=== PATIENT | female | born 1975 | race Hispanic/Latino ===

== ENCOUNTER 2020-03-28 13:25 | Inpatient (IN) | payer OTHER ==
[~2020-03-28] VITALS: Ht 152.4 cm; Wt 57.2 kg
[2020-03-28] VITALS (9 sets, daily range): BP systolic 120–151; BP diastolic 67–79
--- NOTE | 2020-03-28 13:25 | NUR ---
PATIENT TO ROOM VIA EMS UNRESPONSIVE. SHE MOANS UPON TACTILE STIMULATION. PER GUARD SHE WAS FOUND IN CELL HAVING SEIZURE LIKE ACTIVITY FOR AN UNKNOWN AMOUNT OF TIME. SHE WAS SEEN HITTING HEAD ON THE CELL WALL AND THEN GOING LIMP. PER EMS PT APPEARED POSTICTAL UPON THEIR ARRIVAL.
--- NOTE | 2020-03-28 13:30 | NUR ---
SPO2 100% ON 4L NC AT THIS TIME. NASAL TRUMPET INSERTED TO LEFT NARES BY KARIE WHEELER. 02 TITRATED TO 2L VIA MOUTH, SPO2 REMAINS AT 100% ON 2L.
[2020-03-28 13:52] LABS: HCG SERUM/URINE (NEG/POS) NEGATIVE (NEGATIVE); HEMOGLOBIN 9.5 g/dl (12.0-16.0); IMMATURE GRANULOCYTES 0.5 % (0.0-5.0); MEAN CELL VOLUME 73.6 fL CALC (80.0-100.0); MEAN CORPUSCULAR HGB 21.8 pG CALC (26.0-32.0); MEAN CORPUSCULAR HGB CONC 29.7 g/dL CAL (32.0-36.0); NEUT# 4.28 thou/uL (2.00-7.15); RED BLOOD COUNT 4.35 mill/uL (4.20-5.60); RED CELL DISTRI WIDTH 20.5 % (11.5-15.5); URINE BILIRUBIN - DIPSTICK NEGATIVE (NEGATIVE); URINE BLOOD DIPSTICK NEGATIVE (NEGATIVE); URINE COLOR YELLOW; URINE GLUCOSE - DIPSTICK NEGATIVE (NEGATIVE); URINE KETONE NEGATIVE (NEGATIVE); URINE LEUK ESTERASE NEGATIVE (NEGATIVE); URINE NITRITE - DIPSTICK NEGATIVE (Negative); URINE PROTEIN - DIPSTICK NEGATIVE (NEG-TRACE); URINE SPECIFIC GRAVITY 1.025; URINE UROBILINOGEN - DIPSTICK 0.2 E.U./dL (0.2)
--- NOTE | 2020-03-28 14:00 | NUR ---
PATIENT TRYING TO REMOVE NASAL AIRWAY. SPO2 REMAINS 100% ON 2L NC.
[2020-03-28] MEDS ORDERED: ZOLOFT100 MG PO (14:02)
[2020-03-28] MEDS ORDERED: AMOXICILLIN875 MG PO (14:02)
[2020-03-28] MEDS ORDERED: LAMICTAL100 M1 PO (14:03)
[2020-03-28 14:09] LABS: ALKALINE PHOSPHATASE 67 u/l (38-126); ANION GAP 11 (6-22 (CALC)); BUN 12 mg/dL (7-17); BUN/CREATININE RATIO 23 (12-20 (CALC)); CARBON DIOXIDE 25 mmol/l (22-30); CHLORIDE 107 mmol/l (95-108); CREATININE 0.5 mg/dL (0.5-1.0); GFR > 60 ML/MIN (>=60 (CALC)); GFR FOR AFR.AMER. > 60 ML/MIN (>=60 (CALC)); POTASSIUM 4.9 mmol/l (3.5-5.1); SGOT/AST 59 u/l (14-36); SODIUM 139 mmol/l (137-146)
[2020-03-28 14:10] LABS: ALBUMIN 4.5 g/dL (3.2-5.0); BILIRUBIN, TOTAL 0.5 mg/dL (0.0-1.4)
--- NOTE | 2020-03-28 14:20 | NUR ---
PATIENT TO CT SCAN VIA STRETCHER IN STABLE CONDITION ON ENGINEERING INTERN. PATIENT REMAINS DROWSY, FOLLOWING SIMPLE COMMANDS. SPEECH REMAINS GARBLED. OFFICER AT BEDSIDE.
[2020-03-28 14:21] LABS: MYOGLOBIN 20 ng/mL (0 - 62)
--- NOTE | 2020-03-28 14:45 | NUR ---
PATIENT RIGHT UPPER EXTREMITY STRENGTH WEAK BUT IS ABLE TO USE RIGHT HAND TO WHERE PAIN IS AT ON HER HEAD. MILD SWELLING AND BRUISING TO RIGHT SIDE FOREHEAD AND SWELLING TO NOSE NOTED. ICE PACK APPLIED AND SHE IS HOLDING THE ICE PACK WITH RIGHT HAND.
--- NOTE | 2020-03-28 15:04 | NUR ---
MD AT BEDSIDE TO RE-EXAMINE PATIENT.
--- NOTE | 2020-03-28 15:45 | NUR ---
PATIENT REMAINS ALTERED WITH GARBLED SPEECH, SHE FOLLOWS SIMPLE COMMANDS. OFFICER REMAINS AT BEDSIDE. CALL AVENDANO WITHIN REACH.
--- NOTE | 2020-03-28 16:00 | NUR ---
PATIENT LYING IN STRETCHER OPENING AND CLOSING MOUTH, SHE IS SWINGING LEFT ARM AROUND IN FRONT OF FACE. WHEN ASKED IF SHE SEES ANYTHING SHE HAS GARBLED SPEECH. DR JAMA OBSERVING WELL.
--- NOTE | 2020-03-28 16:30 | NUR ---
PATIENT RESTING IN STRETCHER IN NAD, RESP EVEN AND UNLABORED. SHE AWAKENS TO VERBAL STIMULI. SPEECH REMAINS GARBLED AND SHE FOLLOWS SIMPLE COMANDS. OFFICER REMAINS AT BEDSIDE.
--- NOTE | 2020-03-28 17:20 | NUR ---
KARIE GRIMES CALLED REPORT TO KARIE LOPEZ IN ICU.
--- NOTE | 2020-03-28 17:30 | NUR ---
Admission Note Report Given to: JESSICA Transported by: Wheelchair X Stretcher Transported with: X Nurse Transporter X Patent IV O2 X Men'S Swim Coach Location: X ICU MS2 PATIENT TRANSPORTED TO ICU BED 3 BY KARIE GRIMES.
--- NOTE | 2020-03-28 17:40 | NUR ---
female pt received to ICU bed 3 via bed accompanied by Sam Robles RN and patrol sergeant sheriff's office officers x2; admission assessment completed at this time; pt with unintelligible speech/ garbled speech; pupils reactive; no s/s of pain noted; no facial grimaces; no n/v noted; pt able to follow some simple commads such as opening mouth and raising arms; resp even and unlabored/ shallow; lungs diminished (pt will not take deep breaths); skin color wnl; ra; hr reg; strong pulses; no edema noted; sr on monitor; bilat knee high carmen hose placed; abd soft with bs present; no bm noted per procedure writer; no urine to inspect at this time; no urinary incont noted; #18 ems site to lac saline locked; flushed and patent; no redness or edema noted; ivf to be initiated; pt repositioned; suctioned set up at bedside; pt cuffed to bed per officer; call ligh within reach; pt unable to answer questions or give medical hx; will continue to monitor
--- NOTE | 2020-03-28 18:10 | NUR ---
continues to rest in bed with eyes closed; no apparent distress noted; DCSO guard x1 at bedside; sr on monitor; iv intact and patent; call light within reach
--- NOTE | 2020-03-28 20:30 | NUR ---
PATIENT RESTING IN BED. SHE IS AN INMATE AT [facility]. GUARD IN IS THE ROOM AND PATIENT ANKLES AND LEFT ARM SCHACKLED TO BED. PATIENT LETHARGIC BUT AROUSABLE TO NAME. SPEECH IS GARBLED. FOLLOWS SOME COMMANDS. RESP NON-LABORED. LUNGS CLEAR. CMS ADEQUATE TO EXTREMITIES. PATIENT ASSISTED UP TO BSC, VOIDED LARGE AMOUNT CLEAR YELLOW URINE. NS INFUSING TO LAC IV SITE. EXPLAINED PLAN OF CARE. CALL AVENDANO IN REACH. VICE PRESIDENT OF BRAND MANAGEMENT SHOWS SR.
--- NOTE | 2020-03-28 22:44 | NUR ---
MEDICATED WITH TYLENOL 650 MG PO FOR C/O HEADACHE. ASSISTED UP TO BSC TO VOID.
[2020-03-29] VITALS (20 sets, daily range): BP systolic 100–135; BP diastolic 52–87
--- NOTE | 2020-03-29 | NUR ---
COOL PACK APPLIED TO FOREHEAD FOR CONTINUED C/O HEADACHE.
--- NOTE | 2020-03-29 01:59 | NUR ---
VSS. REP NON-LABORED. NO SEIZURE ACTIVITY NOTED. RESTING IN BED WITH EYES CLOSED.
--- NOTE | 2020-03-29 04:00 | NUR ---
SLEEPING. RESP NON-LABORED. VSS.
--- NOTE | 2020-03-29 05:10 | NUR ---
TYLENOL 650 MG PO FOR C/O HEADACHE. COOL PACK APPLIED TO FOREHEAD.
--- NOTE | 2020-03-29 05:54 | NUR ---
NO CHANGES TO REPORT. VSS. RESP NON-LABORED. SR ON MONITOR. NS INFUSING WITHOUT INCIDENT INTO LAC IV SITE.
[2020-03-29 06:00] LABS: HEMATOCRIT 31.3 % (37.0-47.0); HEMOGLOBIN 9.4 g/dl (12.0-16.0); IMMATURE GRANULOCYTES 0.2 % (0.0-5.0); MEAN CELL VOLUME 73.1 fL CALC (80.0-100.0); NEUT# 3.65 thou/uL (2.00-7.15); RED BLOOD COUNT 4.28 mill/uL (4.20-5.60); RED CELL DISTRI WIDTH 20.6 % (11.5-15.5)
[2020-03-29 06:20] LABS: ANION GAP 10 (6-22 (CALC)); BUN 8 mg/dL (7-17); BUN/CREATININE RATIO 16 (12-20 (CALC)); CARBON DIOXIDE 25 mmol/l (22-30); CHLORIDE 108 mmol/l (95-108); CREATININE 0.5 mg/dL (0.5-1.0); GFR > 60 ML/MIN (>=60 (CALC)); GFR FOR AFR.AMER. > 60 ML/MIN (>=60 (CALC)); SODIUM 139 mmol/l (137-146)
--- NOTE | 2020-03-29 07:15 | NUR ---
REPORT RECEIVED FROM KARIE CASSIDY. PT RESTING IN BED SEMI FOWLERS WITH SHEET WRAPPED AROUND HER HEAD COVERING HER EYES AND GUARD AT BEDSIDE. PT'S HEAD WAS UNCOVERED; VERY LETHARGIC. C/O HEAD AND NECK ACHE; VERY QUIET WHEN SPEAKING WITH MINIMAL RESPONSES. STATES FIRST NAME, MONTH AND DAY OF , AND KNOWS SHE IS IN THE HOSPITAL; UNABLE TO STATES WHICH HOSPITAL, YEAR OF , LAST NAME, OR YEAR. FOLLOWS COMMANDS TO MOVE FACIAL MUSCLES. VSS; AFEBRILE. IV FLUIDS INFUSING WITHOUT DIFFICULTY; EMS IV SITE TO LAC APPEARS HEATLHY. LUNGS ARE CLEAR. LLE SHACKLED TO BED. SAFETY MEASURES IN PLACE. CALL LIGHT WITHIN REACH.
--- NOTE | 2020-03-29 08:25 | NUR ---
DR. DE LA VEGA AT BEDSIDE FOR EVAL. PT RESPONDS THE SAME TO HIS QUESTIONS. ALSO C/O NUMBNESS TO RIGHT SIDE OF HER BODY. WHEN ASKED TO WIGGLE HER TOES ONLY LEFT TOES RESPOND. NO RESPONSE TO PAINFUL STIMULI ON FINGERS. PERRLA; 6MM PUPILS. VERBAL ORDERS RECEIVED.
[2020-03-29 08:48] LABS: GFR > 60 ML/MIN (>=60 (CALC)); GFR FOR AFR.AMER. > 60 ML/MIN (>=60 (CALC))
--- NOTE | 2020-03-29 09:10 | NUR ---
0828- STROKE ALERT CALLED. 0835-LAB AT BEDSIDE FOR BLOOD DRAW. 0836- IBRAHIMA FROM [facility] CALLED TO UPDATE NURSE ON EVENTS FROM YESTERDAY. 0845-TRANSPORTED TO CT VIA BED WITH 2 ICU STAFF AND GUARD. TELE-NEUROLOGIST THERE FOR INITIAL EVAL ON HISTORY AND SYMPTOMS. 0847-ON CT TABLE FOR STAT BRAIN CT. 0853-NIH COMPLETED BY NEUROLOGIST; PT HAS RIGHT SIDED WEAKNESS WITH SENSORY LOSS; SLURRED AND GARBLED SPEECH. CTA ORDERED. 0907-CTA COMPLETED.
--- NOTE | 2020-03-29 09:15 | NUR ---
TRANSPORTED BACK TO ROOM VIA BED AND RECONNECTED TO ATTACHMENTS. PT VERY QUIETLY REPEATS "PEE" "PEE." PURWIK CATHETER APPLIED AND PT VOIDED CLEAR YELLOW URINE.
--- NOTE | 2020-03-29 09:51 | NUR ---
Patient is screened for PT intervention and may benefit from consult if medical agrees
--- NOTE | 2020-03-29 09:54 | NUR ---
CTA BRAIN IS NEGATIVE. MORE ORDERS RECEIVED FROM DR. DE LA VEGA INCLUDING MRI WITH AND WITHOUT CONTRAST AND LUMBAR PUNTURE TO RULE OUT MENINGITIS.
--- NOTE | 2020-03-29 11:35 | NUR ---
TRANSPORTED TO MRI VIA MRI STRETCHER WITH ICU NURSE AND GUARD. PT IS ABLE TO ANSWER QUESTIONS FOR CONSENT PURPOSES; DENIES ANY SURGERIES AND METAL IMPLANTS.
--- NOTE | 2020-03-29 12:15 | NUR ---
PT RETURNED TO ROOM 3 AND TRANSFERRED FROM STRETCHER TO BED WITH 2 PERSON ASSIST. RECONNECTED TO ALL ATTACHMENTS AND IV FLUIDS AGAIN INFUSING. PURWIK CATHETER REPLACED. LLE AGAIN SHACKLED TO BED AND GUARD REMAINS AT BEDSIDE. CALL LIGHT WITHIN REACH.
--- NOTE | 2020-03-29 14:30 | NUR ---
PT RESTING ON LEFT SIDE WITH EYES CLOSED AND NO SIGNS OF DISTRESS; WHEN AWAKENED PT DOES C/O HEADACHE; COOL PACK APPLIED. 98-100% SPO2 ON ROOM AIR.
--- NOTE | 2020-03-29 17:16 | NUR ---
NSR ON DIRECTORY OPERATOR WITH HEART RATE IN THE 80'S. PT CONDITION IS UNCHANGED. VSS. AFEBRILE. GUARD REMAINS AT BEDSIDE. SAFETY MEASURES IN PLACE. CALL LIGHT WITHIN REACH.
--- NOTE | 2020-03-29 19:35 | NUR ---
PATIENT IS DROWSY, AWAKENS WITH VERBAL STIMULI. FOLLOWS DIRECTIONS. DOES HAVE RIGHT SIDE WEAKNESS, NO FACIAL DROOP, FLAT EFFECT, ANSWERS QUESTIONS WITH NO CONVERSATION. NURSE ASSESSMENT PERFORMED, SEE CHARTING DOCUMENTATION. LAC 18 G EMS SITE INTACT, NS INFSUING AT 100 ML/HR. ALEXIA HOSE IN PLACE. SR ON TELEMETRY, HR 70'S. 98% O2 SAT ON RA, NO SOB NOTED. BP WNL. PUREWICK IN PLACE. LEFT LEG SHACKLED TO BED, PULP ROLLER AT BEDSIDE. CALL LIGHT WITHIN REACH.
--- NOTE | 2020-03-29 21:05 | NUR ---
PATIENT USES CALL LIGHT, WHEN ASKED WHAT CAN SHE BE HELPED WITH, SHE STATES, "WET." I ASKED AGAIN SINCE I DID NOT UNDERSTOOD WHAT SHE WAS TRING TO SAY, PATIENT STATES, "WET, " AND POINTS TO JOSE AREA. SHE HAD PULLED THE PUREWICK OFF AND WET THE BED PADS. PERICARE PROVIDED, BED PADS CHANGED, PURE WICK PLACED BACK ON, INSTRUCTED TO NOT PULL IT OFF SO THAT IT CAN COLLECT URINE. SHE STATES, "THANK YOU." NO OTHER COMPLAINTS OR NEEDS, CALL LIGHT WITHIN REACH.
--- NOTE | 2020-03-29 21:15 | NUR ---
PHYSICIAN OFFICE SPECIALIST STEPPED OUT TO USE RESTROOM. JUNCTION MAKER IN ROOM IN HER PLACE. PATIENT REMIANS SHACKLED ON LEFT LEG TO BED.
--- NOTE | 2020-03-29 22:00 | NUR ---
PATIENT FRONT WORKER LIGHT, REPORTS PURE WICK CAME OFF. PUREWICK PLACED BACK ON.
[2020-03-30] VITALS (23 sets, daily range): BP systolic 101–153; BP diastolic 52–88
--- NOTE | 2020-03-30 00:48 | NUR ---
PATIENT RESTS WITH EYES CLOSED, NO ACUTE DISTRESS SHOWN. AFEBRILE. CALL LIGHT WITHIN REACH. MANAGER OF SCHOOL AT BEDSIDE.
--- NOTE | 2020-03-30 01:32 | NUR ---
NEW BAG OF NS INFUSING. PATIENT AWAKENS WITH VERBAL STIMULI, LAYS ON HER RIGHT SIDE. NO ACUTE DISTRESS SHOWN. ROLLER CALLED TO WATCH PATIENT WHILE FOOD SERVICE UTILITY WORKER STEPS OUT TO USE RESTROOM.
--- NOTE | 2020-03-30 02:26 | NUR ---
PATIENT BECOMES SIGNIFICANTLY SOB WHEN GETTING UP TO BSC WITHOUT 02, PLACED ON 15 L/MIN HIGH FLOW NC WHILE USING BSC, O2 WENT UP TO 85%. NOW BACK ON BIPAP, O2 92%.
--- NOTE | 2020-03-30 05:37 | NUR ---
TYLENOL GIVEN PER REQUEST, PATIENT ASKED BEHAVIORIST IF SHE COULD HAVE TYLENOL FOR HEADACHE , WHEN I ASKED PATIENT WHAT HER PAIN RATE FROM 0-10, SHE STATES, "8." NOTED SHE COULD SIP FROM STRAW AND NOTED EQUAL BILATERAL CHEECK/MOUTH SYMMETRY WHEN SHE WAS SIPPING FROM STRAW, THAN SHE DRIPPED WATER FROM HER MOUTH. NEW IV START DUE TO EMS IV SITE . PATIENT ABLE TO TOLERATE.
--- NOTE | 2020-03-30 07:10 | NUR ---
REPORT RECEIVED FROM KARIE SOMERS.
--- NOTE | 2020-03-30 07:50 | NUR ---
DR. BRAUN AT BEDSIDE.
--- NOTE | 2020-03-30 08:00 | NUR ---
REPOSITIONED INTO HIGH FOWLERS AND SET UP FOR BREAKFAST; PT FEEDING SELF WITH LEFT HAND. ASSESSMENT COMPLETED.
[2020-03-30 08:05] LABS: HEMATOCRIT 29.4 % (37.0-47.0); HEMOGLOBIN 8.9 g/dl (12.0-16.0); IMMATURE GRANULOCYTES 0.2 % (0.0-5.0); MEAN CELL VOLUME 73.9 fL CALC (80.0-100.0); MEAN CORPUSCULAR HGB 22.4 pG CALC (26.0-32.0); MEAN CORPUSCULAR HGB CONC 30.3 g/dL CAL (32.0-36.0); NEUT# 2.8 thou/uL (2.00-7.15); RED BLOOD COUNT 3.98 mill/uL (4.20-5.60); RED CELL DISTRI WIDTH 20.2 % (11.5-15.5)
--- NOTE | 2020-03-30 08:32 | NUR ---
MICROBIOLOGY LAB ASSISTANT AT BEDSIDE FOR ECHOCARDIOGRAM.
[2020-03-30 08:38] LABS: BUN 8 mg/dL (7-17); BUN/CREATININE RATIO 19 (12-20 (CALC)); CARBON DIOXIDE 24 mmol/l (22-30); CHLORIDE 110 mmol/l (95-108); CREATININE 0.5 mg/dL (0.5-1.0); GFR > 60 ML/MIN (>=60 (CALC)); GFR FOR AFR.AMER. > 60 ML/MIN (>=60 (CALC)); SODIUM 138 mmol/l (137-146)
[2020-03-30 08:41] LABS: ANION GAP 8 (6-22 (CALC)); POTASSIUM 3.7 mmol/l (3.5-5.1)
--- NOTE | 2020-03-30 09:54 | NUR ---
PT TRANSPORTED TO XRAY VIA STRETCHER WITH ICU NURSE AND GUARD FOR LUMBAR PUNCTURE.
--- NOTE | 2020-03-30 10:40 | NUR ---
PT RETURNED TO ICU ROOM 3 IN STABLE CONDITION VIA STRETCHER. INCONTINENT OF URINE; NEW LINENES PROVIDED. PT POSITIONED SUPINE WITH HOB ELEVATED AT 20 DEGREES. CAFFINATED BEVERAGES PROVIDED PER MD ORDER. LLE AGAIN SHACKED TO BED AND GUARD REMAINS AT BEDSIDE. RECONNECTED TO ALL ATTACHMENTS. VSS.
--- NOTE | 2020-03-30 13:36 | NUR ---
PT USED CALL LIGHT TO REQUEST HEADACHE MEDICATION. TYLENOL GIVEN FOR 9/10 HEADACHE. PT SAT UP IN HIGH FOWLERS FOR LUNCH. C/O THE SENSATION THAT WATER IS DRIPPING DOWN THE SIDE OF HER RIGHT FACE; PT STATES THAT SHE KNOWS THERE IS NO WATER, BUT SHE KEEPS WIPING HER FACE THINKING THAT THERE IS. PT IS MORE ALERT AND MORE VERBAL.
--- NOTE | 2020-03-30 14:16 | NUR ---
PT BECAME DISORIENTED CONFUSING HER DRINKING STRAW FOR CHOP STICKS AND SPEECH MORE GARBLED. PERRLA AND PT IS ABLE TO STATE HER FIRST NAME AND FOLLOW COMMANDS TO OPEN AND CLOSE MOUTH. PT THEN BEGINS TO BITE HER TONGUE AND SEIZE; BITE BLOCK PLACED AND NEW ORDER RECEIVED FOR ONE TIME DOSES OF ATIVAN AND KEPPRA.
--- NOTE | 2020-03-30 14:27 | NUR ---
GUSTAVO AND CLINT ADMINISTERED. PT RESTING SEMI FOWLERS WITH EYES CLOSED AND CURRENTLY WITH NO SIGNS OF DISTRESS. STATES, "MY HEAD HURTS."
--- NOTE | 2020-03-30 15:10 | NUR ---
PHYSICAL THERAPY AT BEDSIDE.
--- NOTE | 2020-03-30 17:12 | NUR ---
PT MORE ALERT AND VERBAL AGAIN WITH RESPONSE OF "I'M FINE" WHEN ASKED HOW SHE IS FEELING. REMAINS ON SEIZURE PRECAUTIONS INCLUDING PADDED BED RAILS.
--- NOTE | 2020-03-30 18:19 | NUR ---
PT AT ONE POINT SITTING UP ON EDGE OF BED. ATE 100% OF DINNER. VOIDED 1200ML OF CLEAR YELLOW URINE VIA PURWIK CATHETER.
--- NOTE | 2020-03-30 20:27 | NUR ---
PATIENT IS AWAKE, NO ACUTE DISTRESS SHOWN, LAYS ON HER R-SIDE. ENFORCEMENT OFFICER AT BEDSIDE, NOTIFIED HER I WILL PROVIDE TYLENOL SHE REQUESTED.
--- NOTE | 2020-03-30 21:35 | NUR ---
PATIENT IS AWAKE, WATCHES TV. FOLLOWS COMMANDS, SPEAKS IN FULL SENTENCES, CLEARLY. CAN TRUCK PACKER HER CUP OF WATER WITH HER RIGHT HAND. ON RA, O2 SAT 98%. NO SOB NOTED. NURSE ASSESSMENT PERFORMED. SR ON TELEMETRY, HR 80'S. BP WNL. L-H 22 G IV INTACT, NS INFUSING AT 100 ML/HR. LEG LEG SHACKLED TO BED. IS ABLE TO LIQUEFIED NATURAL GAS PLANT OPERATOR MY FINGERS WITH HER RIGHT HAND, IT IS WEAK. NO DROOP NOTED. TYLENOL GIVEN FOR HEADACHE. ALEXIA HOSE IN PLACE. CAN REPOSITION HERSELF AND SIT UP. POC DISCUSSED.
--- NOTE | 2020-03-30 21:50 | NUR ---
PATIENT ABL TO SWALLOW HER MEDICATIONS, RECHS OVER FOR HER CUP OWITH HER RIGHT HAND AND IS ABL TO HOLD HER CUP WITH NO DIFFICULTY, REQUESTS A SNACK, PROVIDED.
--- NOTE | 2020-03-30 23:55 | NUR ---
NOTED NURSING SUPERVSIOR, NATALIA AND KARIE FOREMAN WERE IN PATIENT'S ROOM. NATALIA SOTO REPORTS PATIENT WAS CORN SHUCKER LIGHT AND SINCE SHE DID NOT UNDERSTAND WHAT PATIENT WAS SAYNG SHE WALKED INTO ROOM AND NOTED PATIENT WAS JERKING HER HEAD REPEATEDLY. NURSIGN FREIGHT BROKER AGENT REPORTS PATIENT IS ABLE TO ANSWER QUESTIONS AND FOLLOW COMMANDS, DOES HAVE RIGHT SIDE DECREASED SENSORY AND RIGHT SIDE IMMOBILE. WILL CONTINUE TO MONITOR. VS WNL.
[2020-03-31] VITALS (16 sets, daily range): BP systolic 101–147; BP diastolic 52–80
--- NOTE | 2020-03-31 00:15 | NUR ---
PATIENT CONTINUES TO NOD HER HEAD NO, I ASKED HER IF SHE KNEW SHE WAS NODDING HER HEAD NO, SHE STATES, "I DID NOT KNOW IWAS NODDING MY HEAD, THANK YOU FOR TELLING ME." GIFTY MORENO.
--- NOTE | 2020-03-31 00:32 | NUR ---
PATIENT LAYS SUPINE, RESTS WITH EYES CLOSED.
--- NOTE | 2020-03-31 00:40 | NUR ---
PATIENT BISCUIT MAKER LIGHT, STATES, "MY BED IS WET." NATALIA SOTO IN ROOM.
--- NOTE | 2020-03-31 05:55 | NUR ---
new i bag of fluids infusing. patient requsts a blanket, provided. no acute distress shwon. call light within reach. police captain precinct at bedside.
[2020-03-31 06:23] LABS: HEMATOCRIT 30.5 % (37.0-47.0); HEMOGLOBIN 9.1 g/dl (12.0-16.0); MEAN CELL VOLUME 73.5 fL CALC (80.0-100.0); MEAN CORPUSCULAR HGB 21.9 pG CALC (26.0-32.0); MEAN CORPUSCULAR HGB CONC 29.8 g/dL CAL (32.0-36.0); RED BLOOD COUNT 4.15 mill/uL (4.20-5.60); RED CELL DISTRI WIDTH 20.2 % (11.5-15.5)
[2020-03-31 06:52] LABS: ALBUMIN 3.7 g/dL (3.2-5.0); ALKALINE PHOSPHATASE 70 u/l (38-126); ANION GAP 10 (6-22 (CALC)); BUN 8 mg/dL (7-17); BUN/CREATININE RATIO 15 (12-20 (CALC)); CARBON DIOXIDE 25 mmol/l (22-30); CHLORIDE 109 mmol/l (95-108); CREATININE 0.6 mg/dL (0.5-1.0); GFR > 60 ML/MIN (>=60 (CALC)); GFR FOR AFR.AMER. > 60 ML/MIN (>=60 (CALC)); POTASSIUM 4.1 mmol/l (3.5-5.1); SGOT/AST 44 u/l (14-36); SODIUM 140 mmol/l (137-146); TOTAL PROTEIN 6.5 g/dL (6.3-8.2)
[2020-03-31 07:03] LABS: BILIRUBIN, TOTAL 0.1 mg/dL (0.0-1.4)
--- NOTE | 2020-03-31 07:05 | NUR ---
REPORT RECEIVED FROM KARIE SOMERS. PT RESTING IN BED WITH EYES CLOSED AND NO SIGNS OF DISTRESS. RESPIRATIONS EVEN AND UNLABORED ON ROOM AIR. GUARD AT BEDSIDE; LLE SHACKED TO BED. IV FLUIDS INFUSING WITHOUT DIFFICULTY; IV SITE APPEARS HEALTHY. SAFETY MEASURES IN PLACE. CALL LIGHT WITHIN REACH.
--- NOTE | 2020-03-31 08:00 | NUR ---
PT REPOSITIONED SELF INTO HIGH FOWLERS TO EAT BREAKFAST; EATING WITH LEFT HAND. CONTINUES TO HAVE RIGHT SIDED WEAKNESS AND NUMBNESS. ALERT AND ORIENTED TO NAME ONLY; ABLE TO STATE MONTH AND DAY OF , BUT DOES NOT REMEMBER WHAT YEAR SHE WAS BORN; ABLE TO STATE THAT SHE IS IN A HOSPITAL, BUT UNABLE TO STATE WHICH HOSPITAL; DOES NOT KNOWN THE YEAR OR PRESIDENT. LUNGS ARE CLEAR; VOIDING CLEAR YELLOW URINE VIA PURWIK CATHETER.
--- NOTE | 2020-03-31 08:16 | NUR ---
DR. DE LA VEGA AT BEDSIDE FOR EVAL.
--- NOTE | 2020-03-31 10:00 | NUR ---
AM MEDS GIVEN; PT HELD HER MILK CARTON WITH HER RIGHT HAND AND TOOK MEDICATIONS WITH HER LEFT HAND; TYLENOL GIVEN FOR HEADACHE. PT THEN COVERED HERSELF BACK UP WITH THE BLANKETS. NO OTHER REQUESTS OR CONCERNS AT THIS TIME. WHEN ASKED IF SHE NEEDED ANYTHING MORE PT RESPONDS, "I'M PERFECT, THANK YOU VERY MUCH." LIGHTS TURNED OFF AND PT AGAIN RESTING.
--- NOTE | 2020-03-31 11:07 | NUR ---
PT BEGAN CONVULSING WITH TONIC CLONIC MOVEMENTS AT 1100 THAT LASTED LESS THAN 1 MINUTE. LABS DRAWN IMMEDIATELY AFTER EVENT INCLUDING PROLACTIN LEVEL PER MD ORDER. ATIVAN GIVEN IV. PT IMMEDIATLEY ABLE TO ANSWER QUETIONS AND FOLLOW COMMANDS AND STATES, "I HAVE A HEADACHE." DENIES ANY OTHER SYMPTOMS AT THIS TIME. PT REPORTS THAT PRIOR TO SEIZURE ACTIVITY SHE JUST STARTS TO SHAKE BUT HAS NO OTHER INDICATORS OR AURA THAT SHE EXPERIENCES. NOW STABLE. WILL CONTINUE TO MONITOR.
--- NOTE | 2020-03-31 12:06 | NUR ---
PHONED [facility] SPOKE WITH BRUNO. ALL INFO GIVEN. FACE SHEET, H&P FAXED WITH [facility] TESTING
--- NOTE | 2020-03-31 12:58 | NUR ---
UP TO [facility] FOR BOWEL MOVEMENT; PT TRANSFERRED SELF INDEPENDENTLY TO COMMODE AND BACK TO BED. ALERT AND TALKING. PT REQUESTS TO MAKE A PHONE CALL TO UPDATE HER FAMILY IN [facility] AND [facility] SHE IS HERE ALONE. RENTAL AGENT DENIES REQUEST. PT IS STABLE AT THIS TIME. CALL LIGHT WITHIN REACH.
--- NOTE | 2020-03-31 14:40 | NUR ---
PHYSICAL THERAPY AT BEDSIDE. PT UP TO BSC FOR VOID. TEARFUL AND CRYING; ASKING IF WE CAN CONTACT HER BROTHER FOR HER.
--- NOTE | 2020-03-31 15:39 | NUR ---
AMPAC: 7 POINTS PT CONTINUES TO SHOW R-SIDED PARALYSIS WITH SEVERE DIFFICULTY PERFORMING BED MOB AND POSITION TRANSITIONS SUCH SUPINE TO SIT AND SIT TO STAND. BOTH OF WHICH REQUIRED MAX A. PT WAS INSTRUCTED TO PERFORM WEIGHT SHIFTING HOWEVER R KNEE GAVE WAY. PT WAS STILL UNABLE TO RAISE HER R UE EFFECTIVELY. RECOMMENDS OCCUPATIONAL THERAPY EVALUATION. SHE WAS UNABLE TO AMBULATE AT THIS TIME R KNEE KEEPS GIVING WAY. SHE WAS GIVEN MIN A TO REPOSITION SUPINE IN BED. PERFORMED ACTIVE ASSISTED KNEE FLEXION WITH TRACE CONTRACTION ON R LE. PT ALSO DID HOOKLYING PELVIC BRIDGING X 10 SH X 10 REPS WHILE THERAPIST STABILIZED B FEET. NO ADVERSE RXNS NOTED OR REPORTED DURING AND AFTER THE TX.
--- NOTE | 2020-03-31 16:13 | NUR ---
PT REQUESTING STRONGER PAIN MEDICATION FOR HEADACHE; NO NEW ORDERS DUE TO CONFUSION, SEIZURES, AND NSAID ALLERGY. PT NOTIFIED OF MD ACCEPTANCE AT [facility] AND POSSIBLE TRANSFER TO HIGH LEVEL OF CARE IN NEUROLOGY.
--- NOTE | 2020-03-31 19:50 | NUR ---
RESTING IN BED ON ROUNDS. ALERT AND ORIENTED X3. SPEECH CLEAR AND APPROPRIATE FOLLOWS DIRECTIONS. STATES NUMBNESS OF RT EXTREMITIES. RESP NON-LABORED. LUNGS CLEAR. ALEXIA HOSE ON. IV IN LH WITH NS INFUSING AT 100 ML/HR, SITE BENIGN. SOIL FERTILITY EXTENSION SPECIALIST SHOWS SR. DISCUSSED PLAN OF CARE. DENIES NEEDS AT THIS TIME. CALL AVENDANO IN REACH. PATIENT IS INMATE FROM [facility] [place] IN ROOM AND ANKLES SHACKLED TO BED.
--- NOTE | 2020-03-31 20:52 | NUR ---
PATIENT ABLE TO SWALLOW MEDS WITH NO DIFFICULTY. NO COMPLAINTS OF PAIN OR NEEDS AT THIS TIME. CALL LIGHT WITHIN REACH.
--- NOTE | 2020-03-31 22:00 | NUR ---
GIVEN HS SNACK. RESTING WITHOUT COMLAINTS. SEIZURE PRECAUTIONS IN PLACE.
--- NOTE | 2020-03-31 23:52 | NUR ---
PATIENT ABLE TO WASH HERSELF UP, STANDS UP TO WASH HER JOSE AREA. LINENS CHANGED. REQUESTS TOOTHBRUSH TO BRUSH HER TEETH. ECONOMIC CONSULTANT AT BEDSIDE. LEG LEG SHACKLED.
[2020-04-01] VITALS (10 sets, daily range): BP systolic 100–125; BP diastolic 60–72
--- NOTE | 2020-04-01 02:00 | NUR ---
RESTING QUIETLY IN BED. SR ON MONITOR.
--- NOTE | 2020-04-01 04:00 | NUR ---
NO CHANGES TO REPORT. VSS. SR ON MONITOR.
[2020-04-01 06:08] LABS: HEMATOCRIT 30.2 % (37.0-47.0); HEMOGLOBIN 9.1 g/dl (12.0-16.0); IMMATURE GRANULOCYTES 0.1 % (0.0-5.0); MEAN CELL VOLUME 73.5 fL CALC (80.0-100.0); MEAN CORPUSCULAR HGB 22.1 pG CALC (26.0-32.0); MEAN CORPUSCULAR HGB CONC 30.1 g/dL CAL (32.0-36.0); NEUT# 3.43 thou/uL (2.00-7.15); RED BLOOD COUNT 4.11 mill/uL (4.20-5.60); RED CELL DISTRI WIDTH 20.3 % (11.5-15.5)
[2020-04-01 06:35] LABS: ANION GAP 9 (6-22 (CALC)); BUN 11 mg/dL (7-17); BUN/CREATININE RATIO 20 (12-20 (CALC)); CARBON DIOXIDE 26 mmol/l (22-30); CHLORIDE 108 mmol/l (95-108); CREATININE 0.5 mg/dL (0.5-1.0); GFR > 60 ML/MIN (>=60 (CALC)); GFR FOR AFR.AMER. > 60 ML/MIN (>=60 (CALC)); POTASSIUM 3.7 mmol/l (3.5-5.1); SODIUM 139 mmol/l (137-146)
--- NOTE | 2020-04-01 07:32 | NUR ---
PT RESTING ON BED , NO DISTRESS NOTED, NO SEIZURE ACTIVITY NOTED AT THIS TIME. OFFICER AT BEDSIDE
--- NOTE | 2020-04-01 09:37 | NUR ---
PT RESTING ON BED ON LEFT SIDE, WATCHING TV, OFFICER AT BEDSIDE. NO COMPLAINTS AT THIS TIME. ADVISED STILL WAITING FOR CONFIRMATION OF BED AT ACCEPTING HOSPITAL
--- NOTE | 2020-04-01 13:18 | NUR ---
PT REMAINS SSEIZURE FREE SINCE 7 THIS AM FOR THIS DEPUTY CLERK OF COURT. LAYING ON STRETCHER WATCHING TV, VITAL SIGNS REMAIN STABLE. OFFICER AT BEDSIDE. PT ALERT/ORIENTED X3. NO PAIN.
--- NOTE | 2020-04-01 15:35 | NUR ---
Patient is seen for PT intervention. She is not responsive at time of treatment. Her babinski reflexes are even and there is no clonus of the extremities. She does not track with her eyes nor does she follow commands or verbalize while I am in the room. Her ROM appears WFL passively but she i sotherwise lying supine and undulating on the left cervical and LUE as if having a seizure. She continue this before I entered and after I left. She had her head turned to the left when I arrived. I turned her head to the right and she continued with same undulations. Am Pac is currently 6
--- NOTE | 2020-04-01 15:45 | NUR ---
PT ELECTRIC VEHICLE ELECTRICIAN LIGHT, WENT TO ROOM AND PTS LEFT ARM WAS MOVING UP AND DOWN, PT WAS CRYING STATES SHE DOESNT KNOW WHY SHE IS DOING THIS AND IS SCARED. ADVISED THAT THIS ACTIITY DOES NOT APPEAR TO BE A SEIZURE ACTIVITY, THAT SHE WAS ABLE TO USE CALL LIGHT AND TALK TO THIS STAFF. ADVISED I WILL SPEAK WITH DOCTOR ON WHAT HE WOULD LIKE TO DO. SPOKE WITH JOANA DAVIS AND ADVISED WILL GIVE HER ATIVAN ORDERED PRN.
--- NOTE | 2020-04-01 16:30 | NUR ---
PT IS CALM AT THIS TIME, NOT CRYING AND NOT HAVING ANY SHAKING. ASKING FOR SOMETHING TO EAT. OFFICER REMAINS AT BEDSIDE.
--- NOTE | 2020-04-01 16:42 | NUR ---
PT USING LAZARO ARMS WITHOUT ANY PROBLEM AT THIS TIME, STATES FEELS FINE AND DOES NOT FEEL SCARED, THANKING US FOR HER CARE
--- NOTE | 2020-04-01 17:19 | NUR ---
PT SMILING AND TALKING WITH OFFICER AND STAFF, NO SEIZURE ACTIVITY OR TWITCHING NOTED, P STATES FEELS FINE, DENIES ANY HEADACHE AT THIS TIME.
--- NOTE | 2020-04-01 20:41 | NUR ---
report was called to charge nurse at [facility]. ot was alert and oriented at time of transfer. pt transferred self to stretcher by walking with no complications noted. lamotrigine was given to officer accompanying pt. pt has medium bowel movement at time of transfers. all pertinent papers and belongings taken with pt.
== END 2020-04-01 20:30 | disposition short-term general hospital (02) | DRG 101 ==
LOC: ED 13:25 → ED-I 15:11 → ED 15:31 → ICU 15:32 → ED-I 16:09 → ICU 17:01
PROVIDERS: Emergency Medicine; Internal Medicine; ADMIT Internal Medicine; ATTEND Internal Medicine
PROC: 009U3ZX Drainage of Spinal Canal, Percutaneous Approach, Diagnostic (ICD-10-PCS; principal; 2020-03-30)
PROC: B01BZZZ Fluoroscopy of Spinal Cord (ICD-10-PCS; 2020-03-30)
DX: G40.909 Epilepsy, unspecified, not intractable, without status epilepticus (principal); G83.84 Todd's paralysis (postepileptic); Z20.822 Contact with and (suspected) exposure to COVID-19
CPT/HCPCS: A9579; J1650; J1953; J2060; Q9967

== ENCOUNTER 2023-03-30 18:41 | Emergency (ER) | payer SELFPAY ==
[~2023-03-30] VITALS: Ht 154.9 cm; Wt 49.0 kg
[~2023-03-30 18:41] MED LIST: AMOXICILLIN875 MG PO; LAMICTAL100 M1 PO; ZOLOFT100 MG PO
[2023-03-30 20:32] VITALS: BP 128/80
[2023-03-30] MEDS ORDERED: ADDERALL10 MG PO (20:38)
[2023-03-30 20:45] VITALS: BP 138/83
[2023-03-30 21:02] VITALS: BP 96/79
[2023-03-30 21:15] VITALS: BP 132/79
[2023-03-30 21:35] VITALS: BP 132/79
== END 2023-03-30 21:36 | disposition home or self-care (01) | DRG 563 ==
LOC: ED 18:41
DX: S93.402A Sprain of unspecified ligament of left ankle, initial encounter (principal); V18.0XXA Pedal cycle driver injured in noncollision transport accident in nontraffic accident, initial encounter; Y93.55 Activity, bike riding